=== PATIENT | female | born 2000 ===

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

== ENCOUNTER 2022-02-18 23:39 | Emergency (ER) | payer MEDICAID ==
[2022-02-19 03:47] VITALS: BP 115/71
== END 2022-02-19 04:00 ==
LOC: ED 23:39
DX: N94.6 Dysmenorrhea, unspecified (principal); Z53.21 Procedure and treatment not carried out due to patient leaving prior to being seen by health care provider

== ENCOUNTER 2022-02-19 06:02 | Emergency (ER) | payer MEDICAID | END 2022-02-19 07:15 | disposition left against medical advice (07) | LOC: ED 06:02 | DX: R69 Illness, unspecified (principal); Z53.21 Procedure and treatment not carried out due to patient leaving prior to being seen by health care provider ==